=== PATIENT | male | born 1985 | race Caucasian/White ===

== ENCOUNTER 2022-10-20 08:00 | Outpatient (CLI) | payer BC | END 2022-10-20 23:59 | disposition home or self-care (01) | LOC: LAB.S 08:00 | PROVIDERS: ATTEND Emergency Medicine | DX: J02.9 Acute pharyngitis, unspecified (principal); R50.9 Fever, unspecified; R09.81 Nasal congestion | CPT/HCPCS: 87070 ==

== ENCOUNTER 2024-07-07 07:00 | Outpatient (CLI) | payer BC ==
--- NOTE | 2024-07-07 10:59 | XRAY Report ---
PROCEDURE: Chest 2V INDICATIONS: COUGH TECHNIQUE: 2 views of the chest were acquired. COMPARISON: None. FINDINGS: Surgical changes and devices: None. Lungs and pleura: No pleural effusions or pneumothorax. Lungs are clear. Mediastinum: Mediastinal contours appear normal. Heart size is normal. Bones and chest wall: No suspicious bony lesions. Overlying soft tissues appear unremarkable. IMPRESSION: No acute cardiopulmonary process. Reviewed by: Brenden Sotomayor MD on 07/07/2024 10:58 AM PDT Approved by: Brenden Sotomayor MD on 07/07/2024 10:58 AM PDT Station ID: [id number]
== END 2024-07-07 23:59 | disposition home or self-care (01) ==
LOC: DI.S 07:00
PROVIDERS: ATTEND Registered Nurse
DX: R05.9 Cough, unspecified (principal)